=== PATIENT | female | born 1945 | race Caucasian/White ===

== ENCOUNTER 2017-06-11 07:05 | Day surgery (SDC) | payer MEDICARE ==
[2017-06-11] MEDS ORDERED: METOPROLOL TART50 MG PO (08:17)
[2017-06-11] MEDS ORDERED: ZYLOPRIM300 MG PO (08:17)
[2017-06-11] MEDS ORDERED: HYDROCODONE-APA1 TAB PO (08:17)
[2017-06-11] MEDS ORDERED: FUROSEMIDE20 MG PO (08:18)
[2017-06-11] MEDS ORDERED: LEVOXYL25 MCG PO (08:18)
[2017-06-11] MEDS ORDERED: K-DUR20 MEQ PO (08:19)
[2017-06-11 08:22] VITALS: BP 125/71; BMI 50.7
[2017-06-11 08:34] LABS: BASOPHILS 0.3 % (0-2); EOSINOPHILS 1.9 % (0-7); HEMATOCRIT 39.3 % (36.0-48.0); HEMOGLOBIN 13.1 g/dL (12-16); IMMATURE GRANULOCYTES 0.2 % (0-5); LYMPHOCYTES 27.5 % (15-50); MCH 31.9 pg (26.0-34.0); MCHC 33.3 g/dL (31.0-37.0); MCV 95.6 fL (80.0-100.0); MEAN PLATELET VOLUME 9.9 fL (7.4-10.4); MONOCYTES 6.7 % (2-11); NEUTROPHILS 63.4 % (40-80); PLATELET COUNT 195 10x3/uL (130-400); RBC 4.11 10x6/uL (4.00-5.40); RDW 12.7 % (11.5-14.5); WBC 5.8 10x3/uL (4.8-10.8)
[2017-06-11 08:50] LABS: ANION GAP 8.9 mmol/L (8-16); CALCIUM 9.7 mg/dL (8.5-10.1); CARBON DIOXIDE 29.9 mmol/L (21.0-32.0); CREATININE - SERUM 1.3 mg/dL (0.6-1.3); POTASSIUM - SERUM 3.8 mmol/L (3.5-5.1)
--- NOTE | 2017-06-11 10:34 | NUR ---
1000-RETURNED FROM GI LAB. ALERT. RESP WITH EASE. PASSING FLATUS. FULL LIQUIDS SERVED. 1030-UP TO BATHROOM, VOIDS AND PASSES GAS. IV D/C.
--- NOTE | 2017-06-11 11:22 | NUR ---
1100-DISCHARGE INSTRUCTIONS REVIEWED. 1105-D/C HOME VIA WHEELCHAIR WITH SPOUSE.
--- NOTE | 2017-07-20 16:03 | OP ---
PATIENT NAME: PENNY POMPA MEDICAL RECORD: [id number] :45 LOCATION:D.OPS ADMISSION DATE: SURGEON: RYLEE PALMER MD DATE OF OPERATION: 06/11/2017 PROCEDURE: Colonoscopy with biopsy, colonoscopy with polypectomy with hot biopsy forceps, colonoscopy with polyp ablation. SCOPE: [employer] video colonoscope. MEDICATIONS: Per TIVA anesthesia. INDICATION FOR TIVA ANESTHESIA: Renal insufficiency, COPD, hypertension, hypothyroidism. The patient received TIVA anesthesia, propofol 370 mg, O2 4 liters. FINDINGS: Informed consent was given. The patient was made comfortable with the above medications. After reaching an adequate level of sedation by slow IV push, the patient was placed on her left side. The rectal exam revealed good sphincter tone, no fissures or fistulas were appreciated. No external skin tags were seen. The colonoscope was advanced to the cecum where the ileocecal valve and appendiceal orifice were identified. The patient's prep was good to fair. Some adhesions were appreciated in the pelvic area due to the history of a previous hysterectomy. On withdrawal of the scope, mucosa was carefully inspected. The patient was noted to have a 0.5 cm polyp in the proximal ascending colon, which was removed with hot biopsy forceps technique. A 1.5 cm polyp was seen in the hepatic flexure at 70 cm and removed in the same fashion. On additional withdrawal of the scope, the patient had 2 small polyps in the distal sigmoid area and these again were removed with hot biopsy forcep technique. On retroflexion, the patient had 2 small polyps near the anal opening and these were ablated. They ranged in size from 0.5 cm to 1 cm. The patient had internal as well as external hemorrhoids on withdrawal of the scope. Of note, she also had developing melanosis coli and a biopsy was taken within the rectal vault for verification. This is due to her constipation. The scope was then withdrawn. IMPRESSION: 1. A 0.5 cm polyp in the proximal ascending colon, removed with hot biopsy forcep technique. 2. A 1.5 cm hepatic flexure polyp at 70 cm removed with hot biopsy forcep technique. 3. Two distal sigmoid polyps approximately 0.5cm-1cm removed with hot biopsy forcep technique. 4. Two distal rectal polyps very close to the anal verge, 0.5 cm and 1 cm in size. These were ablated. 5. Melanosis coli. Biopsy taken in the rectum for verification. 6. Adhesions due to previous hysterectomy. 7. Internal hemorrhoids. 8. External hemorrhoids. PLAN: 1. No aspirin or anti-inflammatory drugs if possible for 14 days. 2. High fiber diet. 3. Return to clinic on a p.r.n. basis. 4. The patient to follow a good bowel regimen to include fluid fibers, 2 stool OPERATIVE REPORT [id number] PENNY POMPA softeners, and a daily dose of MiraLax. She can take a second dose if needed. TRANSINT:[id number] Voice Confirmation ID: [id number] DOCUMENT ID: [id number] RYLEE PALMER MD at 1603 CC: ALF LEE MD [id number] DICTATION DATE: 06/11/17 0937 REGIONAL ACCOUNT DIRECTOR: 06/11/17 1042 [facility] 06/11/17 [facility] [address] [place] [address]
== END 2017-06-11 11:10 | disposition home or self-care (01) ==
LOC: D.OPS 07:05
PROVIDERS: Anesthesiology
DX: K92.1 Melena (principal); K63.5 Polyp of colon; K62.1 Rectal polyp; E66.01 Morbid (severe) obesity due to excess calories; Z68.43 Body mass index [BMI] 50.0-59.9, adult; N28.9 Disorder of kidney and ureter, unspecified; Z01.812 Encounter for preprocedural laboratory examination; K64.8 Other hemorrhoids; K64.4 Residual hemorrhoidal skin tags